=== PATIENT | female | born 1950 ===

== ENCOUNTER 2021-03-08 08:00 | Inpatient (IN) | payer MEDICARE, OTHER ==
[~2021-03-08] VITALS: Ht 149.9 cm; Wt 49.9 kg
[~2021-03-08 08:00] MED LIST: ACET1TAB23 PO; IRBE150T28 PO; OMEP20CA15 PO
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
[2021-03-08] MEDS ORDERED: LORA-259 PO (11:44)
[2021-03-08] MEDS ORDERED: METO50TA16 PO (11:44)
[2021-03-08] MEDS ORDERED: HYDR-3980 PO (11:44)
--- NOTE | 2021-03-08 11:44 | NUR ---
Pt. arrived in the unit via a gurney by an ambulance. Pt. brought to room 220A and Dr. Sexton made aware of the admission and with orders.
[2021-03-08] MEDS ORDERED: ACETAMINOPHEN 325 MG TABLET PO PRN (12:00)
[2021-03-08] MEDS ORDERED: MAG HYDROX/AL HYDROX/SIMETH 30 ML UDC PO PRN (12:00)
[2021-03-08] MEDS ORDERED: MAGNESIUM HYDROXIDE 30 ML UDC PO PRN (12:00)
[2021-03-08] MEDS ORDERED: BLOOD SUGAR DIAGNOSTIC 1 EACH STRIP IN ONE (12:00)
[2021-03-08 12:08] VITALS: BP 164/93
[2021-03-08 16:00] VITALS: BP 156/95
[2021-03-08] MEDS: HYDROCODONE/APAP 10/325MG TABLET PO PRN (17:53)
[2021-03-08] MEDS: DULOXETINE HCL 30 MG CAPSULE.DR PO SCH (18:18)
[2021-03-08] MEDS: HALOPERIDOL 5 MG TABLET PO SCH (18:18)
[2021-03-08] MEDS: BENZTROPINE MESYLATE (1 MG) 1 MG TABLET PO SCH (18:18)
[2021-03-08] MEDS: clonazePAM 0.5 MG TABLET PO PRN (19:49)
--- NOTE | 2021-03-08 19:50 | NUR ---
RN NOTE: ANXIETY PATIENT VERBALIZED THAT SHE IS FEELING VERY ANXIOUS & RESTLESS & INSISTED TO GET ANTI ANXIETY AT THIS TIME. PATIENT ALSO NOTED TO BE VERY ANXIOUS, RESTLESS, HYPERVERBAL, LOUD, AGITATED, PRN KLONOPIN 0.5 MG PO ADMINISTERED. WILL CONTINUE TO MONITOR.
[2021-03-08 20:05] VITALS: BP 152/82
[2021-03-08 20:07] VITALS: BP 152/82
--- NOTE | 2021-03-09 06:00 | NUR ---
RN NOTE PATIENT SLEPT WELL AT NIGHT. NO BEHAVIOR EPISODES NOTED AFTER KLONOPIN WAS ADMINISTERED. WILL ENDORSE TO AM RN FOR CONTINUITY OF CARE.
[2021-03-09 07:04] LABS: CHOLESTEROL 225 mg/dL (<200); HDL CHOLESTEROL 70 mg/dL (40-60); LDL 127 mg/dL (0-99); TRIGLYCERIDES 89 mg/dL (30-150)
[2021-03-09 07:08] LABS: ALBUMIN 3.4 g/dL (3.4-5.0); BILIRUBIN,TOTAL 0.4 mg/dL (0.2-1.0); CALCIUM, SERUM 8.7 mg/dL (8.5-10.1); CREATININE 1.2 mg/dL (0.6-1.3); POTASSIUM 4.5 mmol/L (3.5-5.1); TOTAL PROTEIN, SERUM 6.9 g/dL (6.4-8.2)
[2021-03-09] MEDS: HYDROCODONE/APAP 10/325MG TABLET PO PRN ×2 (07:54→17:53)
--- NOTE | 2021-03-09 07:54 | NUR ---
GIVEN NORCO FOR BACK PAIN.
--- NOTE | 2021-03-09 07:54 | NUR ---
REFUSED RISPERDAL,GIVEN ZYPREXA IM. Addendum: 03/09/21 at 1756 by HOSEA DAVILA RN INCORRECT PT.
[2021-03-09 08:00] VITALS: BP 164/88
[2021-03-09] MEDS: DULOXETINE HCL 30 MG CAPSULE.DR PO SCH (08:20)
[2021-03-09] MEDS: BENZTROPINE MESYLATE (1 MG) 1 MG TABLET PO SCH ×2 (08:20→17:06)
[2021-03-09] MEDS: HALOPERIDOL 5 MG TABLET PO SCH ×2 (08:21→17:05)
[2021-03-09] MEDS: METOPROLOL TARTRATE 50 MG TABLET PO SCH ×2 (08:21→17:06)
[2021-03-09] MEDS: clonazePAM 0.5 MG TABLET PO PRN (09:33)
--- NOTE | 2021-03-09 09:33 | NUR ---
GIVEN KLONOPIN FOR NERVES.
[2021-03-09 16:00] VITALS: BP 160/77
--- NOTE | 2021-03-09 16:15 | NUR ---
PT. CALLING OUT FOR RN,DOES NOT FEEL GOOD BLOATED,HEADACHE,SWEATY AND HOT.LT. ARM ACHING.VS TAKEN. BP 160/77,HEART RATE 72 RR 20T 97.8POX 99%.blood sugar checked and 108.ekg ordered.call out to [facility] credit controller.received orders photo sent of ekg. to roshan.pt. sitting up in bed alert and oriented x2.
--- NOTE | 2021-03-09 16:20 | NUR ---
ekg done,given lopressor for bp..
[2021-03-09] MEDS: DOCUSATE SODIUM 100 MG CAPSULE PO SCH (17:52)
--- NOTE | 2021-03-09 17:57 | NUR ---
GIVEN NORCO FOR BACK PAIN.
[2021-03-09 20:12] VITALS: BP 149/78
[2021-03-09] MEDS: LORAZEPAM 1 MG TABLET PO PRN (20:15)
[2021-03-09 20:17] VITALS: BP 149/78
--- NOTE | 2021-03-09 20:17 | NUR ---
RN NOTE: ANXIETY PATIENT VERBALIZED FEELING ANXIOUS, RESTLESS, NOTED TO BE HYPERVERBAL, AGITATED & ANXIOUS. ATIVAN 1MG P.O GIVEN PRN ORDER. WILL CONT. MONITORING FOR SAFETY AND BEHAVIOR.
[2021-03-10] MEDS: HYDROCODONE/APAP 10/325MG TABLET PO PRN ×2 (05:25→14:45)
--- NOTE | 2021-03-10 05:26 | NUR ---
RN NOTE: PAIN PATIENT C/O LOWER BACK PAIN 05/28 & REQUESTED TO TAKE PAIN MEDICINE.PRN NORCO 10/325 MG 1 TAB PO ADMINISTERED. WILL CONTINUE TO MONITOR.
[2021-03-10 08:00] VITALS: BP 147/72
[2021-03-10] MEDS: HALOPERIDOL 5 MG TABLET PO SCH ×2 (08:23→17:24)
[2021-03-10] MEDS: LORAZEPAM 1 MG TABLET PO PRN ×2 (08:23→17:24)
[2021-03-10] MEDS: BENZTROPINE MESYLATE (1 MG) 1 MG TABLET PO SCH ×2 (08:23→17:24)
[2021-03-10] MEDS: DOCUSATE SODIUM 100 MG CAPSULE PO SCH ×2 (08:23→17:24)
[2021-03-10] MEDS: DULOXETINE HCL 30 MG CAPSULE.DR PO SCH (08:23)
[2021-03-10] MEDS: METOPROLOL TARTRATE 50 MG TABLET PO SCH ×2 (08:23→17:24)
[2021-03-10 16:00] VITALS: BP 147/72
[2021-03-10 20:00] VITALS: BP 133/62
[2021-03-10] MEDS: TEMAZEPAM 7.5 MG CAPSULE PO PRN (21:37)
--- NOTE | 2021-03-10 21:38 | NUR ---
Pt c/o insomnia. Least restrictive measures ineffective. Restoril 7.5 mg 1 cap po prn given as ordered. Will continue to monitor.
--- NOTE | 2021-03-10 22:40 | NUR ---
Post 1 hr restoril effective. Pt asleep in bed easy to arouse. Will continue to monitor. Frequent visual check done for safety.
[2021-03-11] MEDS: HYDROCODONE/APAP 10/325MG TABLET PO PRN ×3 (03:20→20:28)
--- NOTE | 2021-03-11 03:22 | NUR ---
Pt c/o lower back pain 05/28. [place] 10/325 mg po prn given as ordered. Will continue to monitor.
--- NOTE | 2021-03-11 04:20 | NUR ---
Post [address] [place] [address] 0/10. Pt asleep easy to arouse. Will continue to monitor.
[2021-03-11] MEDS: LORAZEPAM 1 MG TABLET PO PRN ×2 (05:36→16:21)
--- NOTE | 2021-03-11 05:37 | NUR ---
Pt c/o anxiety. Least restrictive measures ineffective. Ativan 1 mg po prn given as ordered. Will continue to monitor.
--- NOTE | 2021-03-11 06:38 | NUR ---
Post 1 hr Ativan effective. Pt in room calm. Will continue to monitor. Will endorse to next shift.
[2021-03-11 08:00] VITALS: BP 164/84
[2021-03-11] MEDS: DOCUSATE SODIUM 100 MG CAPSULE PO SCH ×2 (08:08→16:20)
[2021-03-11] MEDS: BENZTROPINE MESYLATE (1 MG) 1 MG TABLET PO SCH ×2 (08:08→16:20)
[2021-03-11] MEDS: METOPROLOL TARTRATE 50 MG TABLET PO SCH ×2 (08:09→16:21)
[2021-03-11] MEDS: HALOPERIDOL 5 MG TABLET PO SCH ×2 (08:09→16:20)
[2021-03-11] MEDS: DULOXETINE HCL 30 MG CAPSULE.DR PO SCH (08:10)
--- NOTE | 2021-03-11 11:24 | NUR ---
RN NOTE: PAIN PT C/O 07/28 LOWER BACK PAIN. REQUESTING NORCO. NORCO 10MG/325MG ADMINISTERED. WILL CONT TO MONITOR PRN EFFECTIVENESS.
[2021-03-11 16:00] VITALS: BP 124/74
--- NOTE | 2021-03-11 16:21 | NUR ---
RN NOTE: ANXIETY PT C/O INCREASING ANXIETY. REQUESTING ATIVAN. ATIVAN 1MG PO PRN ADMINISTERED. WILL CONT TO MONITOR FOR SAFETY, BEHAVIOR AND PRN EFFECTIVENESS.
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
--- NOTE | 2021-03-11 16:42 | NUR ---
Initial Discharge plan: Pt. states she currently resides at [address] [place] [address] [address] [place], [place] [id number] with family. SW spoke with pt.'s daughter, Joseph Gonzalez [phone] regarding discharge plan. Per Joseph, she does not want the pt. to return back to living with her as they cannot deal with pt.s drug & alcohol addiction. SS will collaborate with psychiatrist and IDT to plan a safe & proper discharge.
--- NOTE | 2021-03-11 19:30 | NUR ---
RN NOTES PATIENT IN BED RESTING, EASILY AROUSED. NOT IN ANY APPARENT DISTRESS. A/O X 2. BREATHING EVEN AND UNLABORED. WILL MONITOR PATIENT CLOSELY.
[2021-03-11 20:00] VITALS: BP 136/70
[2021-03-12] MEDS: TEMAZEPAM 7.5 MG CAPSULE PO PRN ×2 (00:15→21:25)
--- NOTE | 2021-03-12 00:20 | NUR ---
RESTORIL REQUESTED BY PT FOR SLEEP.
[2021-03-12] MEDS: HYDROCODONE/APAP 10/325MG TABLET PO PRN ×2 (04:36→13:52)
[2021-03-12] MEDS: LORAZEPAM 1 MG TABLET PO PRN ×2 (05:18→16:10)
[2021-03-12 08:00] VITALS: BP 160/86
[2021-03-12] MEDS: METOPROLOL TARTRATE 50 MG TABLET PO SCH ×2 (08:12→16:10)
[2021-03-12] MEDS: DOCUSATE SODIUM 100 MG CAPSULE PO SCH ×2 (08:12→16:10)
[2021-03-12] MEDS: DULOXETINE HCL 30 MG CAPSULE.DR PO SCH (08:12)
[2021-03-12] MEDS: HALOPERIDOL 5 MG TABLET PO SCH ×2 (08:12→16:10)
[2021-03-12] MEDS: BENZTROPINE MESYLATE (1 MG) 1 MG TABLET PO SCH ×2 (08:12→16:10)
--- NOTE | 2021-03-12 13:52 | NUR ---
RN NOTE: PAIN PT C/O 10/10 LOWER BACK PAIN. PT REQUESTING NORCO. NORCO 10/325 MG PO PRN ADMINISTERED.
--- NOTE | 2021-03-12 16:11 | NUR ---
RN NOTE: ANXIETY PT C/O INCREASING ANXIETY. REQUESTING ATIVAN. ATIVAN 1MG PO PRN ADMINISTERED.
--- NOTE | 2021-03-12 19:30 | NUR ---
GPS RN NOTE, RECEIVED PATIENT AWAKE AND IN BED, NO S/S OR COMPLAINTS OF PAIN AT THIS TIME. PATIENT IS DISPLAYING NO S/S OF APPARENT DISTRESS AT THIS TIME. PATIENT BREATHING IS UNLABORED WITH EQUAL RISE AND FALL OF THE CHEST. PATIENT IS ALERT AND ORIENTED X 2 ON ROOM AIR WITH A SPO2 99%. PATIENT IS COMPLIANT WITH MEDICATIONS, FORGETFUL, ANXIOUS, MAKES NEEDS KNOWN, AND NEEDS REDIRECTION. PATIENT DENIES SUICIDAL AND HOMICIDAL IDEATIONS AT THIS TIME. PATIENT ASSISTED WITH TURNING AND REPOSITIONING Q2HR AND PRN FOR COMFORT AND CIRCULATION. PATIENT HAS NO NEEDS AT THIS TIME. PATIENT EDUCATED ON THE USE OF THE CALL DUDLEY. PATIENT BED SIDE RAILS UP X 2 FOR SAFETY. PATIENT BED IS LOCKED, LOW, WITH BED ALARM ON. WILL CONTINUE TO MONITOR THIS PATIENT Q15 MINUTES WITH THE HELP OF STAFF TO MAINTAIN SAFETY.
[2021-03-12 20:00] VITALS: BP 126/41
--- NOTE | 2021-03-12 21:25 | NUR ---
GPS RN NOTE, PATIENT HAS A COMPLAINT OF NOT BEING ABLE TO SLEEP AND IS REQUESTING RESTORIL AT THIS TIME. PATIENT VITAL SINS ARE STABLE. GAVE RESTORIL 7.5MG PO HS PRN ORDERED. WILL REASSESS FOR INSOMNIA AND I WILL CONTINUE TO MONITOR THIS PATIENT.
[2021-03-13] MEDS: HYDROCODONE/APAP 10/325MG TABLET PO PRN ×2 (03:35→13:32)
--- NOTE | 2021-03-13 03:35 | NUR ---
GPS RN NOTE, PATIENT HAS A COMPLAINT OF LOWER BACK PAIN AT A 8 OUT 10 ON THE PAIN SCALE AND IS REQUESTING NORCO AT THIS TIME. PATIENT VITAL SIGNS ARE STABLE. GAVE NORCO 10 - 325 1 TAB PO TID PRN ORDERED. WILL REASSESS PAIN AND I WILL CONTINUE TO MONITOR THIS PATIENT.
[2021-03-13] MEDS: LORAZEPAM 1 MG TABLET PO PRN ×2 (05:06→17:06)
--- NOTE | 2021-03-13 05:06 | NUR ---
GPS RN NOTE, PATIENT HAS A COMPLAINT OF FEELING ANXIOUS AND IS REQUESTING ATIVAN AT THIS TIME. PATIENT VITAL SIGNS ARE STABLE. GAVE ATIVAN 1MG PO Q8HR PRN ORDERED. WILL REASSESS FOR ANXIETY AND I WILL CONTINUE TO MONITOR THIS PATIENT.
[2021-03-13 08:00] VITALS: BP 157/79
[2021-03-13] MEDS: HALOPERIDOL 5 MG TABLET PO SCH ×2 (08:24→16:53)
[2021-03-13] MEDS: METOPROLOL TARTRATE 50 MG TABLET PO SCH ×2 (08:24→16:53)
[2021-03-13] MEDS: DULOXETINE HCL 30 MG CAPSULE.DR PO SCH (08:25)
[2021-03-13] MEDS: BENZTROPINE MESYLATE (1 MG) 1 MG TABLET PO SCH ×2 (08:25→16:52)
[2021-03-13] MEDS: DOCUSATE SODIUM 100 MG CAPSULE PO SCH ×2 (08:25→16:52)
--- NOTE | 2021-03-13 10:27 | NUR ---
Probable Cause Hearing: Pts [id number] hold was upheld for danger to self and grave disability.
--- NOTE | 2021-03-13 11:12 | NUR ---
Family Contact: SW called the pt.'s daughter, Joseph ([phone]), and left a voicemail stating that the SW would like to discuss the pts treatment plan.
--- NOTE | 2021-03-13 13:33 | NUR ---
RN NOTE: PAIN PT C/O 07/28 LOWER BACK PAIN. REQUESTING PAIN MEDICATION. NORCO 10/325 ADMINISTERED PO PRN.
[2021-03-13 16:00] VITALS: BP 152/87
--- NOTE | 2021-03-13 17:06 | NUR ---
RN NOTE: ANXIETY PT C/O INCREASED ANXIETY. REQUESTING ATIVAN. ATIVAN 1MG PO PRN ADMINISTERED
--- NOTE | 2021-03-13 17:40 | NUR ---
RN NOTE: URINE SPECIMEN SENT
[2021-03-13 18:50] LABS: BILIRUBIN,URINE NEGATIVE (NEGATIVE); COLOR,URINE YELLOW (YELLOW); LEUKOCYTE ESTERASE ,URINE NEGATIVE (NEGATIVE); NITRITE, URINE NEGATIVE (NEGATIVE); PH,URINE 5.5 (5.0-8.0); PROTEIN,URINE NEGATIVE (NEGATIVE); UGLUCOSE NEGATIVE (NEGATIVE); UROBILINOGEN,URINE 0.2 EU/dL (0.2)
[2021-03-13 18:57] LABS: CREATININE, URINE 93.4 MG/DL (30.0-125.0); URINE TOTAL PROTEIN 14.1 mg/dL (0-11.9)
[2021-03-13 18:59] LABS: EOSINOPHIL,URINE None Seen
[2021-03-13 20:20] VITALS: BP 135/69
[2021-03-13] MEDS: TEMAZEPAM 7.5 MG CAPSULE PO PRN (21:51)
[2021-03-14] MEDS: LORAZEPAM 1 MG TABLET PO PRN ×3 (02:52→19:53)
--- NOTE | 2021-03-14 02:53 | NUR ---
RN NOTE: ANXIETY PT C/O FEELING ANXIOUS. REQUESTING ATIVAN. ATIVAN 1MG PO PRN ADMINISTERED.
[2021-03-14 08:00] VITALS: BP 157/73
[2021-03-14] MEDS: HYDROCODONE/APAP 10/325MG TABLET PO PRN ×2 (08:54→17:35)
[2021-03-14] MEDS: BENZTROPINE MESYLATE (1 MG) 1 MG TABLET PO SCH ×2 (09:29→17:06)
[2021-03-14] MEDS: DULOXETINE HCL 30 MG CAPSULE.DR PO SCH (09:29)
[2021-03-14] MEDS: DOCUSATE SODIUM 100 MG CAPSULE PO SCH ×2 (09:29→17:06)
[2021-03-14] MEDS: HALOPERIDOL 5 MG TABLET PO SCH ×2 (09:29→17:06)
[2021-03-14] MEDS: LOSARTAN POTASSIUM 25 MG TABLET PO SCH (09:29)
[2021-03-14] MEDS: METOPROLOL TARTRATE 50 MG TABLET PO SCH ×2 (09:30→17:07)
--- NOTE | 2021-03-14 11:31 | NUR ---
RN-NOTES PATIENT REQUESTING ATIVAN, STATED" I NEED IT FOR MY ANXIETY". ATIVAN 1MG P.O GIVEN PRN ORDER. WILL CONT. MONITORING FOR SAFETY AND BEHAVIOR.
--- NOTE | 2021-03-14 12:30 | NUR ---
RN-NOTES PATIENT LYING IN BED INTERMITTENTLY SLEEPING,CALM,NO ACUTE DISTRESS NOTED.
[2021-03-14 16:00] VITALS: BP 141/70
--- NOTE | 2021-03-14 19:54 | NUR ---
RN NOTE: ANXIETY PT C/O FEELING ANXIOUS. REQUESTING ATIVAN. ATIVAN 1MG PO PRN ADMINISTERED.
[2021-03-14 20:00] VITALS: BP 114/73
[2021-03-14] MEDS: TEMAZEPAM 7.5 MG CAPSULE PO PRN (21:51)
--- NOTE | 2021-03-14 21:52 | NUR ---
RN NOTES: INSOMNIA PT. C/O UNABLE TO SLEEP, EASILY AGITATED PRN RESTORIL 7.5 MG 1 CAP PO ADMINISTERED. WILL CONTINUE TO MONITOR.
[2021-03-15] MEDS: HYDROCODONE/APAP 10/325MG TABLET PO PRN ×2 (07:43→16:04)
[2021-03-15 08:00] VITALS: BP 153/68
[2021-03-15] MEDS: DULOXETINE HCL 30 MG CAPSULE.DR PO SCH (08:05)
[2021-03-15] MEDS: HALOPERIDOL 5 MG TABLET PO SCH ×2 (08:05→16:03)
[2021-03-15] MEDS: LOSARTAN POTASSIUM 25 MG TABLET PO SCH (08:05)
[2021-03-15] MEDS: DOCUSATE SODIUM 100 MG CAPSULE PO SCH ×2 (08:05→16:03)
[2021-03-15] MEDS: BENZTROPINE MESYLATE (1 MG) 1 MG TABLET PO SCH ×2 (08:06→16:03)
[2021-03-15] MEDS: METOPROLOL TARTRATE 50 MG TABLET PO SCH ×2 (08:06→16:03)
--- NOTE | 2021-03-15 08:59 | NUR ---
Family Contact: SW called the pt.'s daughter, Joseph ([phone]), and left a voicemail stating that the SW would like to discuss the pts treatment and discharge plan.
--- NOTE | 2021-03-15 09:00 | NUR ---
SNF Referral: ABIMAEL faxed a referral to [facility] with attn to Luis and DEVI to the fax number: [phone].
--- NOTE | 2021-03-15 09:53 | NUR ---
SNF Contact: DEVI ([phone]) from [facility] contacted the SW and stated that the pt was admitted to their facility.
[2021-03-15] MEDS: LORAZEPAM 1 MG TABLET PO PRN ×2 (10:05→19:18)
--- NOTE | 2021-03-15 10:05 | NUR ---
Pt. is anxious and asking for Ativan po and prn given.
[2021-03-15 16:00] VITALS: BP 153/74
[2021-03-15 20:28] VITALS: BP 138/58
[2021-03-15] MEDS: TEMAZEPAM 7.5 MG CAPSULE PO PRN (22:11)
[2021-03-16] MEDS: LORAZEPAM 1 MG TABLET PO PRN ×2 (05:12→15:11)
[2021-03-16 08:00] VITALS: BP 147/70
--- NOTE | 2021-03-16 08:00 | NUR ---
RN note: Pt received alert awake oriented x 1-2 with episodes of confusion & forgetfulness. No breathing distress noted. [place] PO given as requested by the pt for pain as ordered. Denies SI/HI. Safety measures observed. Encourage pt to call for assistance. Continue with plan of care. Continue to monitor.
[2021-03-16] MEDS: DULOXETINE HCL 30 MG CAPSULE.DR PO SCH (08:22)
[2021-03-16] MEDS: DOCUSATE SODIUM 100 MG CAPSULE PO SCH ×2 (08:23→16:51)
[2021-03-16] MEDS: LOSARTAN POTASSIUM 25 MG TABLET PO SCH (08:23)
[2021-03-16] MEDS: BENZTROPINE MESYLATE (1 MG) 1 MG TABLET PO SCH ×2 (08:23→16:51)
[2021-03-16] MEDS: METOPROLOL TARTRATE 50 MG TABLET PO SCH ×2 (08:24→16:52)
[2021-03-16] MEDS: HYDROCODONE/APAP 10/325MG TABLET PO PRN ×2 (08:24→17:28)
[2021-03-16] MEDS: HALOPERIDOL 5 MG TABLET PO SCH ×2 (08:24→16:51)
[2021-03-16 16:00] VITALS: BP 134/65
[2021-03-16 16:30] VITALS: BP 134/65
[2021-03-16 20:01] VITALS: BP 127/69
[2021-03-16] MEDS: TEMAZEPAM 7.5 MG CAPSULE PO PRN (22:17)
--- NOTE | 2021-03-16 22:34 | NUR ---
GPS RN NOTES PATIENT ASKED FOR RESTORIL. GIVEN PRN.
[2021-03-17 00:09] VITALS: BP 127/69
[2021-03-17] MEDS: HYDROCODONE/APAP 10/325MG TABLET PO PRN ×3 (01:26→20:15)
[2021-03-17] MEDS: LORAZEPAM 1 MG TABLET PO PRN ×2 (04:46→14:06)
--- NOTE | 2021-03-17 04:49 | NUR ---
GPS RN NOTES PATIENT ASKED FOR ATIVAN, FEELING ANXIOUS. GIVEN
--- NOTE | 2021-03-17 06:43 | NUR ---
GPS RN CLOSING PATIENT IN BED SLEEPING, EASY TO AROUSE. NO S/S OF DISTRESS. PAIN MANAGED WITH PAIN MEDICATION. SAFETY KEPT IN PLACE THE WHOLE SHIFT: BED IN LOWEST, LOCKED POSITION. COOPERATIVE. NO SIGNIFICANT CHANGE SINCE LAST SHIFT. WILL ENDORSE CARE TO MORNING SHIFT NURSE.
[2021-03-17 08:00] VITALS: BP 146/78
[2021-03-17] MEDS: HALOPERIDOL 5 MG TABLET PO SCH ×2 (08:35→17:00)
[2021-03-17] MEDS: METOPROLOL TARTRATE 50 MG TABLET PO SCH ×2 (08:35→17:00)
[2021-03-17] MEDS: BENZTROPINE MESYLATE (1 MG) 1 MG TABLET PO SCH ×2 (08:35→17:00)
[2021-03-17] MEDS: DOCUSATE SODIUM 100 MG CAPSULE PO SCH ×2 (08:36→17:00)
[2021-03-17] MEDS: DULOXETINE HCL 30 MG CAPSULE.DR PO SCH (08:36)
[2021-03-17] MEDS: LOSARTAN POTASSIUM 25 MG TABLET PO SCH (08:36)
--- NOTE | 2021-03-17 08:36 | NUR ---
patient c/o back pain 07/28 medicated with [place] 10-325 mg will continue to monitor .
--- NOTE | 2021-03-17 14:06 | NUR ---
patient c/o anxiety medicated with Ativan 1mg po x1 will continue to monitor .
[2021-03-17 16:14] VITALS: BP 123/61
[2021-03-17 20:07] VITALS: BP 148/69
--- NOTE | 2021-03-17 20:16 | NUR ---
RN NOTE: PAIN PATIENT C/O LOWER BACK PAIN 05/28 & REQUESTED TO TAKE NORCO AT THIS TIME. PRN NORCO 10/325 MG 1 TAB PO ADMINISTERED. WILL CONTINUE TO MONITOR.
[2021-03-17 20:40] VITALS: BP 117/78
[2021-03-17] MEDS: TEMAZEPAM 7.5 MG CAPSULE PO PRN (21:51)
--- NOTE | 2021-03-17 21:51 | NUR ---
RN NOTE: INSOMNIA PATIENT VERBALIZED THAT SHE IS UNABLE TO SLEEP & REQUESTED TO TAKE SLEEPING MEDICINE. PRN RESTORIL 7.5 MG PO ADMINISTERED. WILL CONTINUE TO MONITOR.
--- NOTE | 2021-03-18 03:16 | NUR ---
RN NOTE: PATIENT REFUSED WEEKLY SKIN ASSESSMENT X 3 DESPITE OF EXPLANATIONS. PATIENT WANTED TO REST & DID NOT WANT TO BE BOTHERED.
[2021-03-18] MEDS: LORAZEPAM 1 MG TABLET PO PRN ×2 (06:19→15:03)
--- NOTE | 2021-03-18 06:20 | NUR ---
RN NOTE: ANXIETY PT C/O FEELING ANXIOUS & RESTLESS. REQUESTING ATIVAN. ATIVAN 1MG PO PRN ADMINISTERED. WILL CONTINUE TO MONITOR FOR ANY CHANGES.
--- NOTE | 2021-03-18 06:30 | NUR ---
RN NOTE: PATIENT IS FOCUSED ON DISCHARGE, STATES," I NEED TO TAKE CARE OF MY GRAND DAUGHTERS." DOCTOR TOLD ME THAT I WILL BE DISCHARGED ON THURSDAY (03/18/21)." TRIAGE ASSISTANT CHECKED PSYCHIATRISTS PROGRESS NOTES BUT THERE IS NO DISCHARGE DATE HAS BEEN NOTED AT THIS TIME BUT PATIENT IS VERY CONSISTENT WITH HER STATEMENT THAT SHE IS GOING HOME THURSDAY BECAUSE HER DOCTOR HAS TOLD HER. ATTEMPTED TO REDIRECT THE PATIENT BUT PATIENT WAS GETTING IRRITABLE, ANXIOUS & RESTLESS. ATIVAN 1 MG WAS GIVEN. WILL ENDORSE TO AM RN TO FOLLOW UP WITH PATIENT'S PSYCHIATRIST ABOUT DISCHARGE PLANNING.
[2021-03-18 08:00] VITALS: BP 158/71
[2021-03-18] MEDS: DOCUSATE SODIUM 100 MG CAPSULE PO SCH ×2 (08:41→16:19)
[2021-03-18] MEDS: LOSARTAN POTASSIUM 25 MG TABLET PO SCH (08:41)
[2021-03-18] MEDS: BENZTROPINE MESYLATE (1 MG) 1 MG TABLET PO SCH ×2 (08:41→16:20)
[2021-03-18] MEDS: DULOXETINE HCL 30 MG CAPSULE.DR PO SCH (08:41)
[2021-03-18] MEDS: HALOPERIDOL 5 MG TABLET PO SCH ×2 (08:41→16:20)
[2021-03-18] MEDS: METOPROLOL TARTRATE 50 MG TABLET PO SCH ×2 (08:42→16:20)
[2021-03-18] MEDS: HYDROCODONE/APAP 10/325MG TABLET PO PRN ×2 (08:47→16:29)
[2021-03-18 16:00] VITALS: BP 157/81
[2021-03-18 20:20] VITALS: BP 151/62
[2021-03-18] MEDS: TEMAZEPAM 7.5 MG CAPSULE PO PRN (22:21)
--- NOTE | 2021-03-18 22:24 | NUR ---
RN NOTES: INSOMNIA PT.UNABLE TO SLEEP, EASILY AGITATED PRN RESTORIL 7.5 MG PO ADMINISTERED. WILL CONTINUE TO MONITOR.
[2021-03-18 22:30] VITALS: BP 132/72
[2021-03-19 08:00] VITALS: BP 150/77
[2021-03-19] MEDS: LORAZEPAM 1 MG TABLET PO PRN ×2 (08:41→17:12)
[2021-03-19] MEDS: BENZTROPINE MESYLATE (1 MG) 1 MG TABLET PO SCH ×2 (08:41→17:10)
[2021-03-19] MEDS: METOPROLOL TARTRATE 50 MG TABLET PO SCH ×2 (08:42→17:10)
[2021-03-19] MEDS: DULOXETINE HCL 30 MG CAPSULE.DR PO SCH (08:42)
[2021-03-19] MEDS: LOSARTAN POTASSIUM 25 MG TABLET PO SCH (08:42)
[2021-03-19] MEDS: HALOPERIDOL 5 MG TABLET PO SCH ×2 (08:42→17:10)
[2021-03-19] MEDS: DOCUSATE SODIUM 100 MG CAPSULE PO SCH ×2 (08:42→17:10)
--- NOTE | 2021-03-19 09:33 | NUR ---
Family Contact: SW called the pt.'s daughter, Joseph ([phone]), and left a voicemail stating that the pt was going to be discharged today and that she is going to [facility] and provided the contact information.
--- NOTE | 2021-03-19 10:00 | NUR ---
gps chief construction inspector: notes pt for discharge [facility]. pt aware. s.w. made arrangement. for order picker by ambulance at 1500. Addendum: 03/19/21 at 1001 by PAUL HARRIS GLOVE PAIRER pt stable for discharge. pt wants to go home as stated earlier this morning. denied si/hi and denied auditory/visual hallucinations.
--- NOTE | 2021-03-19 11:36 | NUR ---
GPS PLATING INSPECTOR: NOTES DR. OCHOA NOTIFIED AND RECEIVED ORDER TO DISCHARGE PT BACK TO SNF AND HOLD DC'D PER PATSY (RN).
--- NOTE | 2021-03-19 12:16 | NUR ---
Discharge Note: Pt will be discharged to [facility] ([facility]) located at [address] [place] [id number]; ([phone]). Pt will be transported via [facility] at 3PM. SW called the pt.'s daughter, Joseph ([phone]), and left a voicemail about the discharge. Upon discharge, the pt appears to be in a euthymic mood and presented with a congruent affect. Pt appears to be alert and oriented x4 (time, place, self and situation). Pt denies both suicidal and homicidal ideation as well as auditory and visual hallucinations. Pt appears to be ambulatory with an unsteady gait. Pt appears to be well groomed and appropriately dressed. Pt will continue to be under the care of psychiatrist, Dr. Beatty, [place] [address] [place] [address]; ). Pt will be under the care of bookkeeping clerks supervisor, Dr. Garcia, located at [address] [place] [address]; . The choice of vendor form and multidisciplinary exit care form were done, printed, signed, and given to the patient.
--- NOTE | 2021-03-19 14:30 | NUR ---
gps seismograph operator helper: notes report given to kami ybarra) [facility] for continuity of care and informed her eta orange picking supervisor at [phone].
[2021-03-19] MEDS: HYDROCODONE/APAP 10/325MG TABLET PO PRN (14:39)
--- NOTE | 2021-03-19 15:30 | NUR ---
gps customer service trainer: notes resting quietly and comfortable in bed. for d'c to snf today, awaiting for ambulance. s.w. called family re: d'c to snf today. pt stable for discharge. denies si/hi and denies auditory or visual hallucinations. pt unable to sign d'c papers due to confusion, 2 licensed staff signed all d'c papers.
[2021-03-19 16:00] VITALS: BP 151/74
--- NOTE | 2021-03-19 17:00 | NUR ---
gps museum assistant: notes having dinner at this time. awaiting for ambulance to pick her up. pt stable for discharge. will continue to monitor.
[2021-03-19 17:10] VITALS: BP 151/74
--- NOTE | 2021-03-19 17:12 | NUR ---
gps setter automatic spinning lathe: notes pt anxious to leave. emotional support rendered. 1:1 interactions provided. ativan 0.5mg po given per request. reality orientation provided prn. denied si/hi. will continue to monitor.
--- NOTE | 2021-03-19 18:05 | NUR ---
gps rug designer: discharged discharge to snf via ambulance in stable condition accompanied by 2 crew with all d'c papers and belongings.
== END 2021-03-19 18:10 | DRG 885 ==
LOC: GPS 10:59
PROVIDERS: ADMIT Psychiatry & Neurology Psychiatry; ATTEND Nurse Practitioner Acute Care
DX: F25.1 Schizoaffective disorder, depressive type (principal); N17.9 Acute kidney failure, unspecified; N18.9 Chronic kidney disease, unspecified; F17.210 Nicotine dependence, cigarettes, uncomplicated; I12.9 Hypertensive chronic kidney disease with stage 1 through stage 4 chronic kidney disease, or unspecified chronic kidney disease; E78.5 Hyperlipidemia, unspecified; G89.29 Other chronic pain; F41.9 Anxiety disorder, unspecified; F12.90 Cannabis use, unspecified, uncomplicated; M19.90 Unspecified osteoarthritis, unspecified site; M79.7 Fibromyalgia; K59.00 Constipation, unspecified; J44.9 Chronic obstructive pulmonary disease, unspecified; F29 Unspecified psychosis not due to a substance or known physiological condition; Z73.6 Limitation of activities due to disability; V89.2XXS Person injured in unspecified motor-vehicle accident, traffic, sequela; Z20.822 Contact with and (suspected) exposure to COVID-19
CPT/HCPCS: 36415; 80053-TC; 80061-TC; 82570-TC; 82962-TC; 84155-TC; 84300-TC; 97116-TC; 97530-TC